=== PATIENT | male | born 1965 | race Native Hawaiian/Other Pacific Islander ===

== ENCOUNTER 2017-07-31 09:53 | Outpatient (CLI) | payer OTHER ==
[~2017-07-31] VITALS: Ht 167.6 cm; Wt 78.5 kg
[~2017-07-31 09:53] MED LIST: ALPH0.156 OU; BIMA01SOL OU; DORZ2OPD OU; MULT1TAB10 PO
[2017-07-31] MEDS ORDERED: NS 1,000 ML IV ONE (11:45)
[2017-07-31] MEDS ORDERED: PROPOFOL 200 MG/20 ML VIAL As Ordered ONE (12:14)
--- NOTE | 2017-07-31 12:53 | ROOR ---
Patient Name: Mainor Leger Procedure Date: 07/31/2017 12:02 PM Date of : 1965 Age: 52 Room: [facility] Gender: Male Note Status: Finalized Procedure: Colonoscopy Indications: Screening for colorectal malignant neoplasm Providers: Nixon Warren MD Referring MD: EFRAÍN KENNY MD Requesting Provider: Medicines: Monitored Anesthesia Care Complications: No immediate complications. Procedure: Pre-Anesthesia Assessment: - Prior to the procedure, a History and Physical was performed, and patient medications and allergies were reviewed. The patient is competent. The risks and benefits of the procedure and the sedation options and risks were discussed with the patient. All questions were answered and informed consent was obtained. Patient identification and proposed procedure were verified by the physician, the nurse and the garment patternmaker in the procedure room. Mental Status Examination: alert and oriented. Airway Examination: normal oropharyngeal airway and neck mobility. Respiratory Examination: clear to auscultation. CV Examination: normal. Prophylactic Antibiotics: The patient does not require prophylactic antibiotics. Prior Anticoagulants: The patient has taken no previous anticoagulant or antiplatelet agents. ASA Grade Assessment: II - A patient with mild systemic disease. After reviewing the risks and benefits, the patient was deemed in satisfactory condition to undergo the procedure. The anesthesia plan was to use monitored anesthesia care (MAC). Immediately prior to administration of medications, the patient was re-assessed for adequacy to receive sedatives. The heart rate, respiratory rate, oxygen saturations, blood pressure, adequacy of pulmonary ventilation, and response to care were monitored throughout the procedure. The physical status of the patient was re-assessed after the procedure. The Colonoscope was introduced through the anus and advanced to the terminal ileum, with identification of the appendiceal orifice and IC valve. The colonoscopy was performed without difficulty. The patient tolerated the procedure well. The quality of the bowel preparation was good. The terminal ileum, ileocecal valve, appendiceal orifice, and rectum were photographed. Scope insertion time was 5 minutes. Scope withdrawal time was 10 minutes. The total duration of the procedure was 20 minutes. Findings: The perianal and digital rectal examinations were normal. The terminal ileum appeared normal. Non-bleeding external and internal hemorrhoids were found during retroflexion. The hemorrhoids were medium-sized. The exam was otherwise without abnormality on direct and retroflexion views. Impression: - The examined portion of the ileum was normal. - Non-bleeding external and internal hemorrhoids. - The examination was otherwise normal on direct and retroflexion views. - No specimens collected. Recommendation: - Patient has a contact number available for emergencies. The signs and symptoms of potential delayed complications were discussed with the patient. Return to normal activities tomorrow. Written discharge instructions were provided to the patient. - Resume previous diet. - Continue present medications. - Preparation H ointment: Apply externally daily for 7 days. - Repeat colonoscopy in 10 years for screening purposes. - Return to primary care physician. - Return to GI clinic in 10 years. Nixon Warren MD Nixon Warren MD 07/31/2017 12:53:05 PM This report has been signed electronically. Number of Addenda: 0 Note Initiated On: 07/31/2017 12:02 PM Estimated Blood Loss: Estimated blood loss: none.
[2017-07-31 13:00] VITALS: BP 121/71
== END 2017-07-31 13:11 | disposition home or self-care (01) ==
LOC: M OPP 09:53
PROVIDERS: ATTEND Internal Medicine Gastroenterology
DX: Z12.11 Encounter for screening for malignant neoplasm of colon (principal); K64.8 Other hemorrhoids; K64.4 Residual hemorrhoidal skin tags; K62.5 Hemorrhage of anus and rectum; M19.90 Unspecified osteoarthritis, unspecified site; M54.89 Other dorsalgia; R06.83 Snoring; Z79.899 Other long term (current) drug therapy; Z80.3 Family history of malignant neoplasm of breast

== ENCOUNTER 2018-02-14 09:51 | Emergency (ER) | payer OTHER ==
[2018-02-14] MEDS: IBUPROFEN 600 MG TAB PO (10:33)
== END 2018-02-14 10:39 | disposition home or self-care (01) ==
LOC: M ED 09:51
DX: M54.12 Radiculopathy, cervical region (principal); H40.9 Unspecified glaucoma; J30.9 Allergic rhinitis, unspecified; Z79.899 Other long term (current) drug therapy
CPT/HCPCS: 99283